=== PATIENT | female | born 2000 | race Caucasian/White ===

== ENCOUNTER 2021-01-27 08:25 | Outpatient (REF) | payer BC, SELFPAY ==
[2021-01-27 10:27] LABS: Hematocrit 41.7 % (37-47); Mean Corpuscular HGB Conc 31.2 g/dl (31.0-35.0); Mean Corpuscular Hemoglobin 24.9 pg (27.0-33.0); Mean Corpuscular Volume 79.9 fL (80-98); Mean Platelet Volume 11.3 fL (9.4-12.3); Platelet Count 242 X10*3/uL (160-400); Red Blood Count 5.22 X10*6/uL (4.20-5.50); White Blood Count 10.7 X10*3/uL (4.8-10.8)
[2021-01-27 10:48] LABS: Alanine Aminotransferase 16 U/L (0-31); Albumin Level 4.2 g/dL (3.5-5.0); Alkaline Phosphatase 98 U/L (39-117); Anion Gap 11 (12-20); Aspartate Amino Transferase 14 U/L (5-31); Bilirubin Total 0.2 mg/dL (0.0-1.0); Blood Urea Nitrogen 16 mg/dL (9-16); Calcium 9.5 mg/dL (8.4-10.2); Carbon Dioxide 25 mmol/L (22-29); Chloride 109 mmol/L (96-108); Estimated Glomerular Filt Rate > 60; Glucose Fasting 95 mg/dL (60-99); Potassium 4.3 mmol/L (3.3-5.1); Sodium 141 mmol/L (135-145); Total Protein 6.9 g/dL (6.5-8.0)
[2021-01-27 11:12] LABS: TSH reflex Free T4 1.57 uIU/mL (0.32-4.0)
== END 2021-01-27 08:26 | disposition home or self-care (01) ==
LOC: HO.WFDLDS 08:25
PROVIDERS: Visit Provider Hospitalist
DX: Z00.00 Encounter for general adult medical examination without abnormal findings (principal)
CPT/HCPCS: 36415; 80053; 84443; 85027

== ENCOUNTER 2021-02-10 10:15 | Outpatient (REF) | payer BC, SELFPAY ==
[2021-02-10 14:29] LABS: Cholesterol 181 mg/dL; HDL Cholesterol 48 mg/dL; LDL Cholesterol Calculated 110 mg/dl; Triglycerides 116 mg/dL
== END 2021-02-10 10:16 | disposition home or self-care (01) ==
LOC: HO.WFDLDS 10:15
PROVIDERS: Visit Provider Hospitalist
DX: Z00.00 Encounter for general adult medical examination without abnormal findings (principal)
CPT/HCPCS: 36415; 80061